=== PATIENT | male | born 1980 ===

== ENCOUNTER 2022-12-15 06:46 | Emergency (ER) | payer SELFPAY ==
[~2022-12-15] VITALS: Ht 162 cm; Wt 95.2 kg
--- NOTE | 2022-12-15 07:36 | ED General ---
General Chief Complaint: COVID19 Suspect/Confirmed Stated Complaint: COVID+,CONGESTION,DIARRHEA Nursing Triage Note: PT PRESENTS TO ED VIA POV FROM HOME ACCOMPANIED BY WITH COMPLAINTS OF FEELING OVERHEATED AND UNWELL THURSDAY. PT TOOK AN AT HOME COVID TEST THAT CAME OUT POSITIVE. PT REPORTS GUILLORY, BODY ACHES, DIARRHEA, RUNNY NOSE/CONGESTION, FEVER, AND DIZZINESS. PT RETOOK A COVID TEST YESTERDAY- THAT ALSO CAME BACK POSITIVE. NO FEVER REDUCERS THIS AM. Source of Information: Patient, Family Exam Limitations: Language Barrier History of Present Illness Date Seen by Provider: Dec 15, 2022 Time Seen by Provider: 07:25 Initial Comments This 42-year-old gentleman presents to the emergency room with acute illness for the past 4 days. On he thought he was overheated. His tested him for COVID-19 at home and the test was positive. He reports headache, body aches, diarrhea, congestion, fever, and dizziness. Symptoms seem to be improving except the dizziness today. His serves as per diem interpreter for him. Vital signs are unremarkable at this time and he is in no distress. Allergies and Home Medications Allergies Coded Allergies: No Known Drug Allergies (Unverified , 12/15/22) Patient Home Medication List Home Medication List Reviewed: Yes Review of Systems Review of Systems Constitutional: see HPI EENTM: no symptoms reported Respiratory: see HPI Cardiovascular: see HPI Gastrointestinal: see HPI Genitourinary: no symptoms reported Musculoskeletal: see HPI Skin: no symptoms reported Psychiatric/Neurological: See HPI Hematologic/Lymphatic: No Symptoms Reported Immunological/Allergic: no symptoms reported Past Floefpk-Jhtiio-Smzeyj Hx Patient Social History Tobacco Use?: No Substance use?: No Alcohol Use?: No Pt feels they are or have been: No Past Medical History Surgeries: No Respiratory: No Cardiac: No Neurological: No Gastrointestinal: No Musculoskeletal: No Physical Exam Vital Signs Vital Signs - First Documented 12/15/22 07:05 Temp 37.1 Pulse 71 Resp 16 B/P (MAP) 140/89 (106) Pulse Ox 96 Capillary Refill : Less Than 3 Seconds Height, Weight, BMI Height: '" Weight: lbs. oz. kg; 36.00 BMI Method: General Appearance: No Apparent Distress, WD/WN HEENT: PERRL/EOMI, TMs Normal, Normal ENT Inspection, Pharynx Normal Neck: Normal Inspection Respiratory: Lungs Clear, Normal Breath Sounds, No Accessory Muscle Use Cardiovascular: Regular Rate, Rhythm, No Edema, No Murmur Gastrointestinal: Non Tender, Soft Extremity: Normal Inspection, No Pedal Edema Neurologic/Psychiatric: Alert, Oriented x3, No Motor/Sensory Deficits, Normal Mood/Affect Skin: Normal Color, Warm/Dry Progress/Results/Core Measures Suspected Sepsis SIRS Temperature: Pulse: 71 Respiratory Rate: 16 Laboratory Tests 12/15/22 07:46: White Blood Count 4.6 Blood Pressure 140 /89 Mean: 106 Laboratory Tests 12/15/22 07:46: Creatinine 0.85, Platelet Count 213 Results/Orders Lab Results Laboratory Tests Test 12/15/22 07:46 Range/Units White Blood Count 4.6 4.3-11.0 10^3/uL Red Blood Count 5.63 H 4.30-5.52 10^6/uL Hemoglobin 16.0 13.3-17.7 g/dL Hematocrit 47 40-54 % Mean Corpuscular Volume 83 80-99 fL Mean Corpuscular Hemoglobin 28 25-34 pg Mean Corpuscular Hemoglobin Concent 34 32-36 g/dL Red Cell Distribution Width 12.8 10.0-14.5 % Platelet Count 213 130-400 10^3/uL Mean Platelet Volume 8.7 L 9.0-12.2 fL Immature Granulocyte % (Auto) 0 % Neutrophils (%) (Auto) 47 42-75 % Lymphocytes (%) (Auto) 43 12-44 % Monocytes (%) (Auto) 7 0-12 % Eosinophils (%) (Auto) 3 0-10 % Basophils (%) (Auto) 0 0-10 % Neutrophils # (Auto) 2.2 1.8-7.8 10^3/uL Lymphocytes # (Auto) 2.0 1.0-4.0 10^3/uL Monocytes # (Auto) 0.3 0.0-1.0 10^3/uL Eosinophils # (Auto) 0.1 0.0-0.3 10^3/uL Basophils # (Auto) 0.0 0.0-0.1 10^3/uL Immature Granulocyte # (Auto) 0.0 0.0-0.1 10^3/uL Sodium Level 139 135-145 MMOL/L Potassium Level 4.0 3.6-5.0 MMOL/L Chloride Level 107 98-107 MMOL/L Carbon Dioxide Level 25 21-32 MMOL/L Anion Gap 7 5-14 MMOL/L Blood Urea Nitrogen 13 7-18 MG/DL Creatinine 0.85 0.60-1.30 MG/DL Estimat Glomerular Filtration Rate 110 BUN/Creatinine Ratio 15 Glucose Level 102 70-105 MG/DL Calcium Level 9.0 8.5-10.1 MG/DL Magnesium Level 2.1 1.6-2.4 MG/DL My Orders Orders - LUCILLE SALEEM MD Basic Metabolic Panel (12/15/22 07:32) Cbc With Automated Diff (12/15/22 07:32) Magnesium (12/15/22 07:32) Ed Iv/Invasive Line Start (12/15/22 07:32) Lactated Ringers (Lr 1000 Ml Iv Solution (12/15/22 07:45) Medications Given in ED Vital Signs/I&O 12/15/22 12/15/22 07:05 08:59 Temp 37.1 Pulse 71 65 Resp 16 16 B/P (MAP) 140/89 (106) 120/85 Pulse Ox 96 98 Capillary Refill : Less Than 3 Seconds Blood Pressure Mean: 106 Progress Note : Progress Note Patient was offered IV hydration and work-up to check basic electrolytes versus simply discharged home with precautions. Patient elected to be evaluated and receive IV hydration. A liter of LR was infused. This greatly improved his dizziness and he felt much better. Labs were reviewed and interpreted by me including CBC, BMP, and magnesium. All were unremarkable. Patient was discharged in improved condition. Departure Impression Primary Impression: COVID-19 Additional Impression: Dizziness Disposition: 01 HOME, SELF-CARE Condition: Improved Departure-Patient Inst. Decision time for Depature: 08:30 Referrals: NO,LOCAL PHYSICIAN (PCP/Family) Primary Care Physician Patient Instructions: COVID-19 ED Add. Discharge Instructions: Your blood work was unremarkable in the emergency room. Drink plenty of clear liquids to stay well-hydrated. For fever or discomfort you may take ibuprofen up to 600 mg every 6 hours as needed and/or Tylenol (acetaminophen) up to 1000 mg every 6 hours as needed. You should quarantine for 5 full days starting from the first full day of symptoms. As long as your primary symptoms have resolved after 5 days, you may come out of quarantine. However, it is recommended that you mask for an additional 5 days when around others. Return to care if you have any other worsening symptoms despite following these instructions. All discharge instructions reviewed with patient and/or family. Voiced understanding. LUCILLE SALEEM MD Dec 15, 2022 07:36
[2022-12-15] MEDS ORDERED: LACTATED RINGERS 1,000 ML IV ONE (07:45)
[2022-12-15 07:54] LABS: BASOPHILS % (AUTO) 0 % (0-10); EOSINOPHILS # (AUTO) 0.1 10^3/uL (0.0-0.3); EOSINOPHILS % (AUTO) 3 % (0-10); HEMATOCRIT 47 % (40-54); LYMPHOCYTES % (AUTO) 43 % (12-44); MEAN CORPUSCULAR HEMOGLOBIN 28 pg (25-34); MEAN CORPUSCULAR HGB CONC 34 g/dL (32-36); MEAN CORPUSCULAR VOLUME 83 fL (80-99); MEAN PLATELET VOLUME 8.7 fL (9.0-12.2); MONOCYTES # (AUTO) 0.3 10^3/uL (0.0-1.0); MONOCYTES % (AUTO) 7 % (0-12); NEUTROPHILS # (AUTO) 2.2 10^3/uL (1.8-7.8); NEUTROPHILS % (AUTO) 47 % (42-75); PLATELET COUNT 213 10^3/uL (130-400); WHITE BLOOD COUNT 4.6 10^3/uL (4.3-11.0)
[2022-12-15 08:10] LABS: CREATININE SERUM 0.85 MG/DL (0.60-1.30)
[2022-12-15 08:13] LABS: MAGNESIUM 2.1 MG/DL (1.6-2.4)
[2022-12-15 08:59] VITALS: BP 120/85
== END 2022-12-15 08:59 | disposition home or self-care (01) ==
LOC: ER 06:51
DX: U07.1 COVID-19 (principal); R42 Dizziness and giddiness; R19.7 Diarrhea, unspecified; R50.9 Fever, unspecified; R09.81 Nasal congestion; Z28.310 Unvaccinated for COVID-19
CPT/HCPCS: 36415; 80048; 83735; 85025